=== PATIENT | female | born 1980 | race Caucasian/White ===

== ENCOUNTER 2016-08-17 12:02 | Emergency (ER) | payer MEDICAID ==
--- NOTE | 2016-08-23 08:39 | ER ---
ADMIT: 08/17/2016 RM/LOC: ER [facility] MR#: [id number] [id number] [id number] HARMONY MASCORRO [address] [place] [address] Emergency Room Report SEX: F AGE: 35 : 1980 DATE: 08/17/2016 A 35-year-old female comes to the Emergency Department after 21 days of back pain. Today she could not to go to work. See T-sheet for history and physical. She was at course allergic to all NSAIDs, they gave a rash on her left arm. She was given Solu-Medrol IM, and a prescription for Ultram #15. Instructed to follow up with the primary doctor this week. DIAGNOSIS: Back pain. Jack Greenberg MD/ [email or web address] JOB #: [id number] CC: Raj Garcia MD, Attending Physician
== END 2016-08-17 13:45 | disposition home or self-care (01) ==
LOC: ER 12:02
DX: M54.6 Pain in thoracic spine (principal); F17.210 Nicotine dependence, cigarettes, uncomplicated; Z79.899 Other long term (current) drug therapy; Z88.6 Allergy status to analgesic agent